=== PATIENT | female | born 2000 | race Native Hawaiian/Other Pacific Islander ===

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

== ENCOUNTER 2022-05-21 07:18 | Emergency (ER) | payer OTHER ==
[~2022-05-21] VITALS: Ht 172.7 cm; Wt 6.8 kg
[2022-05-21 07:24] VITALS: TEMP 99
[2022-05-21 07:50] VITALS: BP 122/79
== END 2022-05-21 08:10 | disposition home or self-care (01) ==
LOC: ED 07:18
DX: K02.9 Dental caries, unspecified (principal)
CPT/HCPCS: 96372; 99282; J1885